=== PATIENT | male | born 1960 | race Caucasian/White ===

== ENCOUNTER 2018-05-02 18:27 | Emergency (ER) | payer OTHER ==
[2018-05-02 18:48] VITALS: BP 126/70
--- NOTE | 2018-05-02 18:56 | UC ---
UC General HPI - HPI Summary HPI Summary: 2 DAY HX WORSENING REDNESS AND SWELLING R 5TH TOE INTO THE TOP OF FOOT. NO INJURY, FEVER, DM OR HX MRSA. AREA DOES BURN A LITTLE. - History of Current Complaint Chief Complaint: UCLowerExtremity Stated Complaint: RIGHT FOOT RED AND SWOLLEN Time Seen by Provider: 05/02/18 18:41 Hx Obtained From: Patient, Family/Government Affairs Fellow Onset/Duration: Gradual Onset Timing: Constant Pain Intensity: 10 Associated Signs & Symptoms: Negative: Fever - Allergy/Home Medications Allergies/Adverse Reactions: Allergies Allergy/AdvReac Type Severity Reaction Status Date / Time No Known Allergies Allergy Verified 05/02/18 18:43 PMH/Surg Hx/FS Hx/Imm Hx Previously Healthy: Yes - Surgical History Surgical History: Yes Surgery Procedure, Year, and Place: appy--age 16yrs - Family History Known Family History: Positive: Non-Contributory - Social History Lives: With Family Alcohol Use: None Substance Use Type: None Smoking Status (MU): Current Every Day Smoker Type: Cigarettes Amount Used/How Often: 1 1/2 ppd Length of Time of Smoking/Using Tobacco: 41 yrs Have You Smoked in the Last Year: Yes Review of Systems All Other Systems Reviewed And Are Negative: Yes Skin: Positive: Rash Physical Exam Triage Information Reviewed: Yes Appearance: Well-Appearing Vital Signs: Initial Vital Signs Temp 97.9 F 05/02/18 18:44 Pulse 92 05/02/18 18:44 Resp 20 05/02/18 18:44 BP 126/70 05/02/18 18:44 Pulse Ox 100 05/02/18 18:44 Eye Exam: Normal Eyes: Positive: Conjunctiva Clear ENT: Positive: Normal ENT inspection Neck: Positive: Supple, Nontender Respiratory: Positive: No respiratory distress, Decreased breath sounds Cardiovascular: Positive: RRR, No Murmur Abdomen Description: Positive: Nontender Musculoskeletal: Positive: ROM Intact Neurological: Positive: Alert Psychological: Positive: Age Appropriate Behavior Skin Exam: Normal, Other - R foot= area between 4th/5th toes is macerated and foul. The same area is red with mild swelling the extends into the dorsal foot. No bony tenderness and the foot has full s/v/m function. No streaking. Course/Dx - Differential Dx - Multi-Symptom Differential Diagnoses: Other - Diagnoses Provider Diagnosis: Cellulitis of right foot, Tinea pedis of right foot Discharge - Sign-Out/Discharge Documenting (check all that apply): Patient Departure All imaging exams completed and their final reports reviewed: No Studies - Discharge Plan Condition: Stable Disposition: HOME Prescriptions: Cephalexin CAP* [Keflex CAP*] 500 mg PO TID 10 Days #30 cap Ketoconazole 2 % CREAM (NF) [Nizoral 2% CREAM (NF)] 1 applic TOPICAL BID 14 Days #1 tube Patient Education Materials: Athlete's Foot (ED), Cellulitis (DC) Referrals: JHONATAN Mathis [Medical Doctor] - 3 Days Additional Instructions: GO TO THE ER FOR ANY WORSENING - Billing Disposition and Condition Condition: STABLE Disposition: Home
== END 2018-05-02 19:07 | disposition home or self-care (01) ==
LOC: UCCORT 18:27
DX: L03.115 Cellulitis of right lower limb (principal); B35.3 Tinea pedis
CPT/HCPCS: 99202; G0463